=== PATIENT | female | born 1985 | race Caucasian/White ===

== ENCOUNTER 2018-01-05 21:38 | Emergency (ER) | payer OTHER ==
[~2018-01-05] VITALS: Ht 157.5 cm; Wt 100.2 kg
--- NOTE | ~2018-01-05 | EKG ---
[facility] [place] [address] ELECTROCARDIOGRAM REPORT Name: DENISE THOMAS Room #: DEP LILIA Ramey#: [id number] Admission: 01/05/18 Attend Phys: Discharge: 01/06/18 Date of : 87 Report #: [id number] THIS REPORT FOR: //name// 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
[2018-01-05 22:49] LABS: URINE BILIRUBIN NEGATIVE (Negative); URINE BLOOD NEGATIVE (Negative); URINE CLARITY CLEAR; URINE COLOR YELLOW; URINE GLUCOSE-RANDOM* NEGATIVE (Negative); URINE KETONES NEGATIVE (Negative); URINE NITRITE-REFLEX NEGATIVE (Negative); URINE PROTEIN (DIPSTICK) NEGATIVE (Negative); URINE SPECIFIC GRAVITY 1.015 (1.005-1.035); URINE UROBILINOGEN 0.2 E.U./dl (0.2-1.0)
[2018-01-05 22:51] LABS: URINE LEUKOCYTES-REFLEX TRACE (Negative)
[2018-01-05] MEDS ORDERED: PROGESTERONE200 MG RECTAL (22:56)
[2018-01-05] MEDS ORDERED: VITAFOL-OB+DHA1 EACH PO (22:56)
[2018-01-05 23:00] LABS: ABSOLUTE NEUTROPHILS 7.1 thou/uL (1.4-8.2); BASOPHILS 0.5 % (0.0-2.0); EOSINOPHILS 0.7 % (0.0-3.0); HEMOGLOBIN 15.4 gm/dL (12.0-15.0); LYMPHOCYTES 20.9 % (24.0-44.0); MCH 33.5 pg (26.0-34.0); MCHC 35.8 g/dL (28.0-37.0); MCV 93.8 fL (80.0-100.0); MONOCYTES 5.4 % (1.0-8.0); PLATELET COUNT 194 thou/uL (150-400); POLYS 72.5 % (36.0-66.0); RBC 4.58 mil/uL (4.20-5.00); RDW 12.1 % (10.5-14.5); WBC 9.8 thou/uL (4.0-11.0)
[2018-01-05 23:06] LABS: CALCIUM 9.4 mg/dL (8.5-10.1); CREATININE 0.8 mg/dL (0.6-1.0); POTASSIUM 3.2 mmol/L (3.5-5.1)
[2018-01-05 23:18] LABS: ALBUMIN 4.1 g/dL (3.4-5.0); TOTAL BILIRUBIN 0.8 mg/dL (<0.1-1.0); TOTAL PROTEIN 7.9 g/dL (6.4-8.2)
[2018-01-05 23:32] LABS: ANISOCYTOSIS 2+; POLYCHROMASIA 1+
[2018-01-06] MEDS ORDERED: REGLAN 10 MG TA10 MG PO (00:11)
[2018-01-06 00:33] VITALS: BP 136/76
== END 2018-01-06 00:34 | disposition home or self-care (01) ==
LOC: ER 21:38
PROVIDERS: Emergency Medicine
DX: O26.891 Other specified pregnancy related conditions, first trimester (principal); R11.0 Nausea; R42 Dizziness and giddiness; O24.419 Gestational diabetes mellitus in pregnancy, unspecified control; Z3A.01 Less than 8 weeks gestation of pregnancy; Z88.0 Allergy status to penicillin; Z88.1 Allergy status to other antibiotic agents